=== PATIENT | female | born 1960 | race Caucasian/White ===

== ENCOUNTER 2018-08-05 15:36 | Inpatient (IN) | payer OTHER ==
[2018-08-05 17:18] VITALS: BMI 41.1
--- NOTE | 2018-08-05 21:36 | HP ---
CIWA Score Nausea/Vomitin-Mild Nausea/No Vomiting Muscle Tremors: 4-Moderate,w/Arms Extend Anxiety: 3 Agitation: 3 Paroxysmal Sweats: 3 (Increased facial moisture w/o beads) Orientation: 0-Oriented Tacttile Disturbances: 0-None Auditory Disturbances: 0-None Visual Disturbances: 0-None Headache: 2-Mild CIWA-Ar Total Score: 16 - Admission Criteria OAS Guidelines: Admission for Medically Managed Detox: Requires at least one of the followin. CIWA greater than 12 2. Seizures within the past 24 hours 3. Delirium tremens within the past 24 hours 4. Hallucinations within the past 24 hours 5. Acute intervention needed for co occurring medical disorder 6. Acute intervention needed for co occurring psychiatric disorder 7. Severe withdrawal that cannot be handled at a lower level of care (continued vomiting, continued diarrhea, abnormal vital signs) requiring intravenous medication and/or fluids 8. Patient presents the following: CIWA greater than 12 Admission Criteria Met: Admission criteria met Admission ROS [facility] Chief Complaint: Having alcohol withdrawal. Allergies/Adverse Reactions: Allergies Allergy/AdvReac Type Severity Reaction Status Date / Time codeine Allergy Severe Difficulty Verified 08/05/18 18:47 Breathing aspirin AdvReac Nausea Verified 08/05/18 21:43 History of Present Illness: Here for alcohol detox. Alcohol use began at age 13. Started drinking heavy 3 years ago. Electronic cigarettes - 18 mg daily Hx: blackouts. Last blackout unknown. Denies seizures. Seen at [facility] ER from 08/04 -11/18 and was brought straight to [facility] for detox Reports from [facility] reviewed: EKG (08/04/18) = Sinus Tachycardia w/ minimal ST depression Give Libruim and Ativan while in ER. Hx: Chronic back pain, last prescription for Tramadol was 3 months ago. States had a stroke in September 2017 which was caused by clots in lower extremities. Not opn any blood thinners. Uses a cane because of feelings of being unsteady on feet. Denies other significant PMH/PSH. Denies depression. Denies thoughts of harming self or others. Search Terms: Hawarosalie Lucianono, 1960 Search Date: 08/05/2018 09:34:25 PM The Drug Utilization Report below displays all of the controlled substance prescriptions, if any, that your patient has filled in the last twelve months. The information displayed on this report is compiled from pharmacy submissions to the Department, and accurately reflects the information as submitted by the pharmacies. This report was requested by: Neela Regalado | Reference #: [id number] Others' Prescriptions Patient Name: Hawa Davis Date: 1960 Address: [address] [place] [address] Sex: Female Rx Written Rx Dispensed Drug Quantity Days Supply Prescriber Name 05/05/2018 05/05/2018 tramadol hcl 50 mg tablet 30 10 Ziggy, Lucy 04/18/2018 04/18/2018 tramadol hcl 50 mg tablet 30 10 Mayelin, Sepideh MALDONADOP-Rufino 03/22/2018 03/22/2018 tramadol hcl 50 mg tablet 60 20 Mayelin, Sepideh MATOS-Rufino 01/27/2018 01/27/2018 tramadol hcl 50 mg tablet 90 30 Beka, Davie 01/11/2018 01/11/2018 tramadol hcl 50 mg tablet 60 30 Mayelin, Sepideh MALDONADOP-Rufino 01/03/2018 01/03/2018 tramadol hcl 50 mg tablet 1 1 Ziggy, Lucy 12/23/2017 12/23/2017 tramadol hcl 50 mg tablet 30 30 Beka, Davie 12/15/2017 12/15/2017 tramadol hcl 50 mg tablet 5 5 Beauchamp, Neo Stewart 11/04/2017 11/04/2017 tramadol hcl 50 mg tablet 60 30 Ziggy, Lucy Exam Limitations: No Limitations - Ebola screening Have you traveled outside of the country in the last 21 days: No Have you had contact with anyone from an Ebola affected area: No Have you been sick,other than usual withdrawal symptoms: No Do you have a fever: No - Review of Systems Constitutional: Diaphoresis, Changes in sleep (Difficulty falling asleep) EENT: reports: Blurred Vision, Dental Problems (Chipped/cracked/loose teeth. Chews and swallows okay.) Respiratory: reports: Shortness of Breath (Sometimes SOB when laying flat), SOB with Exertion Cardiac: reports: No Symptoms Reported GI: reports: Blood Streaked Bowels (On occassion - I think I have a hemorrhoid) , Nausea : reports: No Symptoms Reported Musculoskeletal: reports: Back Pain (Chronic LBP x years. Pain quality and amount varies. Pain increases when sitting for long periods. Pain is "8" at this.) Integumentary: reports: No Symptoms Reported Neuro: reports: Headache (Mild), Tremors Endocrine: reports: Increased Thirst (I feel dehydrated) Hematology: reports: Blood Clots (in lower extremities which caused stroke.) Psychiatric: reports: Judgement Intact, Mood/Affect Appropiate, Orientated x3, Agitated, Anxious Patient History - Patient Medical History Hx Asthma: No Hx Chronic Obstructive Pulmonary Disease (COPD): No Hx Cardiac Disorders: No Hx Hypertension: No Hx Seizures: No Hx Diabetes: No Hx Gastrointestinal Disorders: No Hx Genitourinary Disorders: No Hx Sexually Transmitted Disorders: No Hx Renal Disease (ESRD): No Hx Depression: Yes Hx Suicide Attempt: No Hx Schizophrenia: No - Patient Surgical History Past Surgical History: No Hx Neurologic Surgery: No Hx Cataract Extraction: No Hx Cardiac Surgery: No Hx Lung Surgery: No Hx Breast Surgery: No Hx Breast Biopsy: No Hx Abdominal Surgery: No Hx Appendectomy: No Hx Cholecystectomy: No Hx Genitourinary Surgery: No Hx Section: No Hx Orthopedic Surgery: Yes Other Surgical History: KIDNEY STONES @17 YEARS Anesthesia Reaction: No - PPD History Previous Implant?: Yes Documented Results: Negative w/o proof Implanted On Prior R Admission?: Yes PPD to be Administered?: Yes - Smoking Cessation Smoking history: Current every day smoker Have you smoked in the past 12 months: Yes Aproximately how many cigarettes per day: 3 (Electronic at 18 mcg) Hx Chewing Tobacco Use: No Initiated information on smoking cessation: No 'Breaking Loose' booklet given: 08/05/18 - Substance & Tx. History Hx Alcohol Use: Yes Hx Substance Use: Yes Substance Use Type: Alcohol Hx Substance Use Treatment: Yes (rehab) - Substances Abused Alcohol Route: Oral Frequency: Daily Amount used: liquor- 1 litre Age of first use: 13 Date of Last Use: 08/04/18 Admission Physical Exam [facility] - Vital Signs Vital Signs: Vital Signs - 24 hr 08/05/18 17:17 Temperature 98.4 F Pulse Rate 114 H Respiratory 18 Rate Blood Pressure 135/97 - Physical General Appearance: Yes: Nourished, Mild Distress, Obese (Generalized adiposity) , Tremorous, Sweating, Anxious HEENTM: Yes: EOMI, Hearing grossly Normal, BAKARI, Pharynx Normal, Other ((L) eye droop. Able to close lids tightly.) Respiratory: Yes: Lungs Clear, Normal Breath Sounds, No Respiratory Distress Neck: Yes: No masses,lesions,Nodules, Supple Breast: Yes: Breast Exam Deferred Cardiology: Yes: Regular Rhythm, S1, S2, Tachycardia Abdominal: Yes: Non Tender, Soft, Increased Bowel Sounds, Protuberent ( Increased abdominal adiposity) Genitourinary: Yes: Within Normal Limits Back: Yes: Normal Inspection Musculoskeletal: Yes: full range of Motion, Gait Steady (w/ use of cane) Extremities: Yes: Normal Capillary Refill, Normal Range of Motion, Non-Tender, Tremors Neurological: Yes: building cleaner II-XII NML intact, Fully Oriented, Alert, Motor Strength 5/5, Normal Mood/Affect Integumentary: Yes: Normal Color, Dry, Warm Lymphatic: Yes: Within Normal Limits - Diagnostic (1) Tachycardia Current Visit: Yes Status: Chronic (2) Alcohol dependence with uncomplicated withdrawal Current Visit: Yes Status: Acute (3) Obesity, morbid, BMI 40.0-49.9 Current Visit: Yes Status: Chronic (4) Nicotine dependence, uncomplicated Current Visit: Yes Status: Chronic Qualifiers: Nicotine product type: other Qualified Code(s): F17.290 - Nicotine dependence, other tobacco product, uncomplicated Comment: Uses electronic cigarettes (5) Chronic low back pain Current Visit: Yes Status: Chronic Qualifiers: Back pain laterality: midline Sciatica presence: without sciatica Qualified Code(s): M54.5 - Low back pain; G89.29 - Other chronic pain (6) Personal history of transient ischemic attack (TIA), and cerebral infarction without residual deficits Current Visit: Yes Status: Chronic Cleared for Admission [facility] - Detox or Rehab [facility] Level of Care: Medically Managed Detox Regimen/Protocol: Librium [facility] Breath Alcohol Content Breath Alcohol Content: 0.002 Urine Drug Screen - Results Drug Screen Negative: No Urine Drug Screen Results: BAR-Barbiturates, BZO-Benzodiazepines
[2018-08-05] MEDS ORDERED: MAGNESIUM CITRATE 300 ML BOTTLE PO PRN (22:13)
[2018-08-05] MEDS ORDERED: ACETAMINOPHEN 325 MG TABLET (FP) PO PRN ×2 (22:13→22:21)
[2018-08-05] MEDS ORDERED: NICOTINE POLACRILEX 2 MG GUM BC PRN (22:13)
[2018-08-05] MEDS ORDERED: MAG HYDROX/AL HYDROX/SIMETH 30 ML UNIT-DOSE CUP PO PRN (22:13)
[2018-08-05] MEDS ORDERED: MAGNESIUM HYDROX 2400MG/30ML ORAL SUSPENSION 30 ML CUP PO PRN (22:13)
[2018-08-05] MEDS ORDERED: P-EPHED 60MG/TRIPROLIDI 2.5MG TABLET PO PRN (22:13)
[2018-08-05] MEDS ORDERED: LOPERAMIDE HCL 2 MG CAPSULE PO PRN (22:13)
[2018-08-05] MEDS ORDERED: MENTHOL/PHENOL 1 EACH UD MM PRN (22:13)
[2018-08-05] MEDS ORDERED: IBUPROFEN 400 MG TABLET (FP) PO PRN ×2 (22:13→22:21)
[2018-08-05] MEDS ORDERED: guaiFENesin 200 MG/10 ML 10 ML UNIT-DOSE CUPS PO PRN (22:15)
[2018-08-05] MEDS: chlordiazePOXIDE HCL 25 MG CAPSULE PO SCH (23:30)
[2018-08-06] MEDS: MELATONIN 5 MG TABLETS PO PRN (00:55)
[2018-08-06] MEDS: chlordiazePOXIDE HCL 25 MG CAPSULE PO SCH ×4 (06:07→23:08)
[2018-08-06] MEDS: IBUPROFEN 600 MG TABLET (FP) PO PRN ×2 (08:57→23:09)
[2018-08-06 10:04] LABS: HEMATOCRIT 37.4 % (32.4-45.2); HEMOGLOBIN 11.6 GM/dL (10.7-15.3); MEAN CELL VOLUME 83.9 fl (80-96); PLATELET COUNT 294 K/MM3 (134-434); RBC 4.46 M/mm3 (3.60-5.2); RDW 19.6 % (11.6-15.6)
[2018-08-06] MEDS: NICOTINE 14 MG/24 HOURS TOPICAL PATCH TD SCH (10:54)
[2018-08-06] MEDS: PRENATAL VITAMINS W/ FOLIC ACID TABLET (FP) PO SCH (10:56)
[2018-08-06 11:13] LABS: ALBUMIN 3.2 g/dl (3.4-5.0); ALK PHOS 100 U/L (45-117); ANION GAP 11 MMOL/L (8-16); BILIRUBIN,TOTAL 0.4 mg/dL (0.2-1); BLOOD UREA NITROGEN 20 mg/dL (7-18); CALCIUM 8.8 mg/dL (8.5-10.1); CHLORIDE 99 mmol/L (98-107); CO2 25 mmol/L (21-32); CREATININE 0.7 mg/dL (0.55-1.3); GLUCOSE,RANDOM 108 mg/dL (74-106); SGOT/AST 16 U/L (15-37); SGPT/ALT 22 U/L (13-61); SODIUM 135 mmol/L (136-145); TOT PROT 7.2 g/dl (6.4-8.2)
[2018-08-06] MEDS: LIDOCAINE 5% TOPICAL PATCH TP SCH (11:43)
[2018-08-06] MEDS: METHYL SALICYLATE/MENTHOL OINT 30 GM TUBE TP SCH ×2 (11:44→23:08)
[2018-08-06] MEDS: chlordiazePOXIDE HCL 25 MG CAPSULE PO PRN (13:34)
--- NOTE | 2018-08-06 14:39 | PN ---
[facility] CIWA - CIWA Score Nausea/Vomitin-No Nausea/No Vomiting Muscle Tremors: 4-Moderate,w/Arms Extend Anxiety: 4-Mod. Anxious/Guarded Agitation: 4-Moderately Restless Paroxysmal Sweats: 1-Minimal Palms Moist Orientation: 0-Oriented Tacttile Disturbances: 0-None Auditory Disturbances: 0-None Visual Disturbances: 0-None Headache: 0-None Present CIWA-Ar Total Score: 13 S Progress Note (SOAP) Subjective: ANXIETY, IRRITABILITY, LOWER BACK PAIN. REPORTS SHE USES [employer] FOR HER TOE PAIN. Objective: 08/06/18 14:39 Vital Signs 08/06/18 10:36 Temperature 97.4 F L Pulse Rate 115 H Respiratory 18 Rate Blood Pressure 144/85 Laboratory Tests 08/06/18 08/06/18 08/06/18 08:00 08:00 08:00 WBC 6.0 RBC 4.46 Hgb 11.6 Hct 37.4 MCV 83.9 MCH 26.0 MCHC 31.0 L RDW 19.6 H Plt Count 294 MPV 8.0 Sodium 135 L Potassium 4.0 Chloride 99 Carbon Dioxide 25 Anion Gap 11 BUN 20 H Creatinine 0.7 Creat Clearance w eGFR > 60 Random Glucose 108 H Calcium 8.8 Total Bilirubin 0.4 AST 16 ALT 22 Alkaline Phosphatase 100 Total Protein 7.2 Albumin 3.2 L RPR Titer Nonreactive Assessment: 08/06/18 14:39 WITHDRAWAL SX CHRONIC LBP
[2018-08-06] MEDS: LIDOCAINE PATCH REMOVAL MC SCH (23:06)
[2018-08-06] MEDS: THIAMINE HCL 100 MG TABLET (FP) PO SCH (23:07)
[2018-08-07] MEDS: chlordiazePOXIDE HCL 25 MG CAPSULE PO SCH ×3 (05:48→16:41)
[2018-08-07] MEDS: IBUPROFEN 600 MG TABLET (FP) PO PRN ×2 (05:49→20:15)
[2018-08-07] MEDS: PRENATAL VITAMINS W/ FOLIC ACID TABLET (FP) PO SCH (10:51)
[2018-08-07] MEDS: METHYL SALICYLATE/MENTHOL OINT 30 GM TUBE TP SCH ×2 (10:52→22:03)
[2018-08-07] MEDS: NICOTINE 14 MG/24 HOURS TOPICAL PATCH TD SCH (10:52)
[2018-08-07] MEDS: LIDOCAINE 5% TOPICAL PATCH TP SCH (10:52)
[2018-08-07] MEDS: hydrOXYzine PAMOATE 50 MG CAPSULE (FP) PO PRN ×2 (11:30→20:15)
[2018-08-07] MEDS: cloNIDine HCL 0.1 MG TABLET PO PRN ×2 (11:30→20:15)
--- NOTE | 2018-08-07 17:04 | PN ---
[facility] CIWA - CIWA Score Nausea/Vomitin-Mild Nausea/No Vomiting Muscle Tremors: 3 Anxiety: 2 Agitation: 2 Paroxysmal Sweats: 2 Orientation: 0-Oriented Tacttile Disturbances: 1-Very Mild Itch/Numbness Auditory Disturbances: 0-None Visual Disturbances: 0-None Headache: 0-None Present CIWA-Ar Total Score: 11 S Progress Note (SOAP) Subjective: Interrupted sleep, nausea, feels lethargic and dehydrated, anxious, feels intermittent numbness to toes and top of feet Objective: 08/07/18 17:01 Last Vital Signs Temp Pulse Resp BP Pulse Ox 98.2 F 105 H 20 181/104 H 08/07/18 11:23 08/07/18 11:23 08/07/18 11:23 08/07/18 11:23 Elevated b/p noted: denies htn Laboratory Tests 08/06/18 08/06/18 08/06/18 08:00 08:00 08:00 WBC 6.0 RBC 4.46 Hgb 11.6 Hct 37.4 MCV 83.9 MCH 26.0 MCHC 31.0 L RDW 19.6 H Plt Count 294 MPV 8.0 Sodium 135 L Potassium 4.0 Chloride 99 Carbon Dioxide 25 Anion Gap 11 BUN 20 H Creatinine 0.7 Creat Clearance w eGFR > 60 Random Glucose 108 H Calcium 8.8 Total Bilirubin 0.4 AST 16 ALT 22 Alkaline Phosphatase 100 Total Protein 7.2 Albumin 3.2 L RPR Titer Nonreactive Labs reviewed: bun 20 Assessment: 08/07/18 17:02 Withdrawal symptoms Noted with azotemia Plan: Continue detox Vistaril prn for anxiety Azotemia: encouraged PO water intake Elevated b/p: clonidine prn, initiate routine therapy if warranted, follow up with PCP for monitoring/management
[2018-08-07] MEDS: chlordiazePOXIDE HCL 25 MG CAPSULE PO PRN (20:14)
[2018-08-07] MEDS: chlordiazePOXIDE 5 MG CAPSULE PO SCH (22:03)
[2018-08-07] MEDS: LIDOCAINE PATCH REMOVAL MC SCH (22:04)
[2018-08-07] MEDS: THIAMINE HCL 100 MG TABLET (FP) PO SCH (22:04)
[2018-08-07] MEDS: MELATONIN 5 MG TABLETS PO PRN (23:31)
[2018-08-08] MEDS: chlordiazePOXIDE 5 MG CAPSULE PO SCH ×3 (06:02→17:41)
[2018-08-08] MEDS: IBUPROFEN 600 MG TABLET (FP) PO PRN ×4 (06:03→22:51)
[2018-08-08] MEDS ORDERED: ALBUTEROL SO4 0.083% IH SOL 2.5 MG/3 ML VIAL.NEB. NEB PRN (09:47)
[2018-08-08] MEDS ORDERED: ALBUTEROL SO4 8 GM HFA INHALER IH PRN (09:47)
[2018-08-08] MEDS: NICOTINE 14 MG/24 HOURS TOPICAL PATCH TD SCH (10:48)
[2018-08-08] MEDS: METHYL SALICYLATE/MENTHOL OINT 30 GM TUBE TP SCH ×2 (10:49→22:40)
[2018-08-08] MEDS: PRENATAL VITAMINS W/ FOLIC ACID TABLET (FP) PO SCH (10:49)
[2018-08-08] MEDS: LIDOCAINE 5% TOPICAL PATCH TP SCH (10:49)
[2018-08-08 10:52] LABS: URINE APPEARANCE CLEAR; URINE BILIRUBIN NEGATIVE (<2.0 mg/dL); URINE COLOR STRAW; URINE GLUCOSE (UA) NEGATIVE (NEGATIVE); URINE KETONE NEGATIVE (NEGATIVE); URINE LEUK ESTERASE NEGATIVE (NEGATIVE); URINE NITRITE NEGATIVE (NEGATIVE); URINE PROTEIN NEGATIVE (NEGATIVE); URINE UROBILINOGEN NEGATIVE mg/dL (0.2-1.0)
--- NOTE | 2018-08-08 12:02 | PN ---
[facility] Progress Note (SOAP) Subjective: feeling better less tremor little sweat mild gi distress discuss weight loss Objective: 08/08/18 12:01 Vital Signs Temperature 97.3 F L 08/08/18 09:29 Pulse Rate 90 08/08/18 09:29 Respiratory Rate 20 08/08/18 09:29 Blood Pressure 102/66 08/08/18 09:29 O2 Sat by Pulse Oximetry (%) Laboratory Last Values WBC 6.0 K/mm3 (4.0-10.0) 08/06/18 08:00 RBC 4.46 M/mm3 (3.60-5.2) 08/06/18 08:00 Hgb 11.6 GM/dL (10.7-15.3) 08/06/18 08:00 Hct 37.4 % (32.4-45.2) 08/06/18 08:00 MCV 83.9 fl (80-96) 08/06/18 08:00 MCH 26.0 pg (25.7-33.7) 08/06/18 08:00 MCHC 31.0 g/dl (32.0-36.0) L 08/06/18 08:00 RDW 19.6 % (11.6-15.6) H 08/06/18 08:00 Plt Count 294 K/MM3 (134-434) 08/06/18 08:00 MPV 8.0 fl (7.5-11.1) 08/06/18 08:00 Sodium 135 mmol/L (136-145) L 08/06/18 08:00 Potassium 4.0 mmol/L (3.5-5.1) 08/06/18 08:00 Chloride 99 mmol/L (98-107) 08/06/18 08:00 Carbon Dioxide 25 mmol/L (21-32) 08/06/18 08:00 Anion Gap 11 MMOL/L (8-16) 08/06/18 08:00 BUN 20 mg/dL (7-18) H 08/06/18 08:00 Creatinine 0.7 mg/dL (0.55-1.3) 08/06/18 08:00 Creat Clearance w eGFR > 60 (>60) 08/06/18 08:00 Random Glucose 108 mg/dL (74-106) H 08/06/18 08:00 Calcium 8.8 mg/dL (8.5-10.1) 08/06/18 08:00 Total Bilirubin 0.4 mg/dL (0.2-1) 08/06/18 08:00 AST 16 U/L (15-37) 08/06/18 08:00 ALT 22 U/L (13-61) 08/06/18 08:00 Alkaline Phosphatase 100 U/L (45-117) 08/06/18 08:00 Total Protein 7.2 g/dl (6.4-8.2) 08/06/18 08:00 Albumin 3.2 g/dl (3.4-5.0) L 08/06/18 08:00 Urine Color Straw 08/08/18 08:20 Urine Appearance Clear 08/08/18 08:20 Urine pH 5.0 (5.0-8.0) 08/08/18 08:20 Ur Specific [place] 1.005 (1.010-1.035) L 08/08/18 08:20 Urine Protein Negative (NEGATIVE) 08/08/18 08:20 Urine Glucose (UA) Negative (NEGATIVE) 08/08/18 08:20 Urine Ketones Negative (NEGATIVE) 08/08/18 08:20 Urine Blood Negative (NEGATIVE) 08/08/18 08:20 Urine Nitrite Negative (NEGATIVE) 08/08/18 08:20 Urine Bilirubin Negative (<2.0 mg/dL) 08/08/18 08:20 Urine Urobilinogen Negative mg/dL (0.2-1.0) 08/08/18 08:20 Ur Leukocyte Esterase Negative (NEGATIVE) 08/08/18 08:20 RPR Titer Nonreactive (NONREACTIVE) 08/06/18 08:00 lab noted Assessment: 08/08/18 12:02 withdrawal sx Plan: continue detox
[2018-08-08] MEDS: cloNIDine HCL 0.1 MG TABLET PO PRN (20:23)
[2018-08-08] MEDS: chlordiazePOXIDE HCL 25 MG CAPSULE PO PRN (20:23)
[2018-08-08] MEDS: hydrOXYzine PAMOATE 50 MG CAPSULE (FP) PO PRN (20:23)
[2018-08-08] MEDS: chlordiazePOXIDE HCL 10 MG CAPSULE PO SCH (22:40)
[2018-08-08] MEDS: THIAMINE HCL 100 MG TABLET (FP) PO SCH (22:40)
[2018-08-08] MEDS: MELATONIN 5 MG TABLETS PO PRN (22:41)
[2018-08-08] MEDS: LIDOCAINE PATCH REMOVAL MC SCH (22:50)
[2018-08-09] MEDS: chlordiazePOXIDE HCL 10 MG CAPSULE PO SCH ×2 (05:56→11:06)
[2018-08-09] MEDS: IBUPROFEN 600 MG TABLET (FP) PO PRN (07:03)
[2018-08-09 09:25] VITALS: BP 113/79; PULSE 103; TEMP 97.5
[2018-08-09] MEDS: PRENATAL VITAMINS W/ FOLIC ACID TABLET (FP) PO SCH (10:46)
[2018-08-09] MEDS: NICOTINE 14 MG/24 HOURS TOPICAL PATCH TD SCH (10:46)
[2018-08-09] MEDS: LIDOCAINE 5% TOPICAL PATCH TP SCH (10:46)
[2018-08-09] MEDS: METHYL SALICYLATE/MENTHOL OINT 30 GM TUBE TP SCH (10:46)
--- NOTE | 2018-08-09 14:13 | DS ---
[facility] Detox Discharge Summary Admission Date: 08/05/18 Discharge Date: 08/09/18 - History Present History: Alcohol Dependence Additional Comments: 58 years old female admitted on 08/05/18 for alcohol withdrawal stabilization completed alcohol detox regimen alert ambulate with cane on [facility] services patient reported that she had stroke not long ago walking with a cane patient preferred return to stroke doctor for morer physical therapy sessions to make her stronger to go to chemical rehab facility Pertinent Past History: recommend healthy life style weight loss discuss important of sobriety patient stated that her sister will pick her up from the facility and bring her home encourage the patient to attend 12 step self help group - Physical Exam Results Vital Signs: Vital Signs Temperature 97.5 F L 08/09/18 09:24 Pulse Rate 103 H 08/09/18 09:24 Respiratory Rate 20 08/09/18 09:24 Blood Pressure 113/79 08/09/18 09:24 O2 Sat by Pulse Oximetry (%) Pertinent Admission Physical Exam Findings: alcohol withdrawal sx Vital Signs Temperature 97.5 F L 08/09/18 09:24 Pulse Rate 103 H 08/09/18 09:24 Respiratory Rate 20 08/09/18 09:24 Blood Pressure 113/79 08/09/18 09:24 O2 Sat by Pulse Oximetry (%) Laboratory Last Values WBC 6.0 K/mm3 (4.0-10.0) 08/06/18 08:00 RBC 4.46 M/mm3 (3.60-5.2) 08/06/18 08:00 Hgb 11.6 GM/dL (10.7-15.3) 08/06/18 08:00 Hct 37.4 % (32.4-45.2) 08/06/18 08:00 MCV 83.9 fl (80-96) 08/06/18 08:00 MCH 26.0 pg (25.7-33.7) 08/06/18 08:00 MCHC 31.0 g/dl (32.0-36.0) L 08/06/18 08:00 RDW 19.6 % (11.6-15.6) H 08/06/18 08:00 Plt Count 294 K/MM3 (134-434) 08/06/18 08:00 MPV 8.0 fl (7.5-11.1) 08/06/18 08:00 Sodium 135 mmol/L (136-145) L 08/06/18 08:00 Potassium 4.0 mmol/L (3.5-5.1) 08/06/18 08:00 Chloride 99 mmol/L (98-107) 08/06/18 08:00 Carbon Dioxide 25 mmol/L (21-32) 08/06/18 08:00 Anion Gap 11 MMOL/L (8-16) 08/06/18 08:00 BUN 20 mg/dL (7-18) H 08/06/18 08:00 Creatinine 0.7 mg/dL (0.55-1.3) 08/06/18 08:00 Creat Clearance w eGFR > 60 (>60) 08/06/18 08:00 Random Glucose 108 mg/dL (74-106) H 08/06/18 08:00 Calcium 8.8 mg/dL (8.5-10.1) 08/06/18 08:00 Total Bilirubin 0.4 mg/dL (0.2-1) 08/06/18 08:00 AST 16 U/L (15-37) 08/06/18 08:00 ALT 22 U/L (13-61) 08/06/18 08:00 Alkaline Phosphatase 100 U/L (45-117) 08/06/18 08:00 Total Protein 7.2 g/dl (6.4-8.2) 08/06/18 08:00 Albumin 3.2 g/dl (3.4-5.0) L 08/06/18 08:00 Urine Color Straw 08/08/18 08:20 Urine Appearance Clear 08/08/18 08:20 Urine pH 5.0 (5.0-8.0) 08/08/18 08:20 Ur Specific [place] 1.005 (1.010-1.035) L 08/08/18 08:20 Urine Protein Negative (NEGATIVE) 08/08/18 08:20 Urine Glucose (UA) Negative (NEGATIVE) 08/08/18 08:20 Urine Ketones Negative (NEGATIVE) 08/08/18 08:20 Urine Blood Negative (NEGATIVE) 08/08/18 08:20 Urine Nitrite Negative (NEGATIVE) 08/08/18 08:20 Urine Bilirubin Negative (<2.0 mg/dL) 08/08/18 08:20 Urine Urobilinogen Negative mg/dL (0.2-1.0) 08/08/18 08:20 Ur Leukocyte Esterase Negative (NEGATIVE) 08/08/18 08:20 RPR Titer Nonreactive (NONREACTIVE) 08/06/18 08:00 lab noted - Treatment Hospital Course: Detox Protocol Followed, Detoxed Safely, Responded well, Discharged Condition Good, Rehab Referral Accepted Patient has Accepted a Rehab Referral to: [facility] - Medication Discharge Medications: Ambulatory Orders NK [No Known Home Medication] 08/05/18 - Diagnosis (1) Ambulates with cane Status: Chronic (2) Alcohol dependence with uncomplicated withdrawal Status: Acute (3) Nicotine dependence, uncomplicated Status: Acute Qualifiers: Nicotine product type: cigarettes Qualified Code(s): F17.210 - Nicotine dependence, cigarettes, uncomplicated - AMA Did Patient Leave Against Medical Advice: No
== END 2018-08-09 13:15 | disposition home or self-care (01) | DRG 897 ==
LOC: YASAS 15:36 → Y3N 20:55
PROC: HZ2ZZZZ Detoxification Services for Substance Abuse Treatment (ICD-10-PCS; principal; 2018-08-05)
DX: F10.230 Alcohol dependence with withdrawal, uncomplicated (principal); F17.213 Nicotine dependence, cigarettes, with withdrawal; M54.5 Low back pain; G89.29 Other chronic pain; R00.0 Tachycardia, unspecified; R03.0 Elevated blood-pressure reading, without diagnosis of hypertension; R79.89 Other specified abnormal findings of blood chemistry; R26.89 Other abnormalities of gait and mobility; Z99.89 Dependence on other enabling machines and devices; Z86.73 Personal history of transient ischemic attack (TIA), and cerebral infarction without residual deficits
CPT/HCPCS: 36415; 80053; 81003; 85027; 86593; J0735